=== PATIENT | male | born 1960 | race Caucasian/White ===

== ENCOUNTER 2024-09-07 11:35 | Emergency (ER) | payer BC, OTHER ==
[2024-09-07 12:07] VITALS: TEMP 99.5; BMI 30.5
[2024-09-07] MEDS ORDERED: LIDOCAINE HCL 2% JELLY 11 ML TP ONE (13:44)
[2024-09-07] MEDS: LIDOCAINE HCL 2% JELLY 10 ML CARTRIDGE UR ONE (14:04)
[2024-09-07 14:19] LABS: EPI CELLS 8 /uL (0-25.1); HYALINE CASTS 2 /uL (0-3.1); URINE APPEARANCE TURBID; URINE BACTERIA 7 /uL (0-1359); URINE BILIRUBIN NEGATIVE (NEGATIVE); URINE COLOR ORANGE; URINE GLUCOSE (UA) NEGATIVE (NEGATIVE); URINE KETONE TRACE (NEGATIVE); URINE LEUK ESTERASE 1+ (NEGATIVE); URINE NITRITE NEGATIVE (NEGATIVE); URINE PROTEIN 2+ (NEGATIVE); URINE RBC 5692 /uL (0-23.9); URINE UROBILINOGEN 0.2 mg/dL (0.2-1.0); URINE WBC 70 /uL (0-25.8)
[2024-09-07 14:30] LABS: BASO % 0.4 % (0-2.0); EOS % 1.3 % (0-4.5); HEMATOCRIT 35.8 % (35.4-49); HEMOGLOBIN 11.7 GM/dL (11.7-16.9); LYMPH % 9.2 % (8-40); MCH 29.9 pg (25.7-33.7); MCHC 32.6 g/dl (32.0-35.9); MEAN CELL VOLUME 91.7 fl (80-96); MEAN PLT VOLUME 9.1 fl (7.5-11.1); MONO % 7.5 % (3.8-10.2); NEUT % 81.6 % (42.8-82.8); PLATELET COUNT 162 10^3/uL (134-434); RDW 15.7 % (11.9-15.9); WHITE BLOOD COUNT 7.3 K/mm3 (4.0-10.0)
[2024-09-07 14:38] LABS: INR 1.03 (0.83-1.09); PROTHROMBIN TIME (PATIENT) 11.6 SEC (9.7-13.0)
[2024-09-07 14:51] LABS: CALCIUM 8.9 mg/dL (8.5-10.1)
[2024-09-07 14:52] LABS: ALBUMIN 3.5 g/dl (3.4-5.0); BLOOD UREA NITROGEN 25.4 mg/dL (7-18)
[2024-09-07 14:55] LABS: CREATININE 0.7 mg/dL (0.55-1.3)
[2024-09-07 14:56] LABS: BILIRUBIN,TOTAL 0.5 mg/dL (0.2-1)
[2024-09-07 14:57] LABS: TOT PROT 6.4 g/dl (6.4-8.2)
[2024-09-07] MEDS ORDERED: CEFTRIAXONE 1 G/50 ML PREMIX 50 ML IVPB ONE (14:58)
[2024-09-07] MEDS: CEFTRIAXONE 1,000 MG in DEXTROSE 5%-WATER - 50 ML IVPB ONE (15:03)
[2024-09-07] MEDS: SODIUM CHLORIDE 1,000 ML IV STA (15:15)
[2024-09-07 16:31] VITALS: BP 155/90; PULSE 94; RESP 17
== END 2024-09-07 17:29 | disposition home or self-care (01) ==
LOC: JER 11:35
DX: N39.0 Urinary tract infection, site not specified (principal); R31.9 Hematuria, unspecified
CPT/HCPCS: 36415; 80053; 81003; 85025; 85610; 86850; 86900; 86901; 87040; 87086; 99284-25